=== PATIENT | male | born 1955 | race Caucasian/White ===

== ENCOUNTER 2019-04-15 17:08 | Emergency (ER) | payer OTHER ==
[~2019-04-15] VITALS: Ht 172.7 cm; Wt 87.5 kg
[~2019-04-15 17:08] MED LIST: AMOX875T PO; ASPI-515 PO; ATOR10TA9 PO; HYDR-3237 PO; ISOS30TA PO; METO25TA2 PO; TICA90TA PO
--- NOTE | 2019-04-15 17:18 | NUR ---
triage note. pt reports hx of cardiac stent. A&O x4. COFFMAN, ambulatory wihtout difficulty. no facial droop. no difficulty breathing speaking or swallowing. has no physical c/o at this time. reports that he was having difficuty speaking during a meeting about 2 hours ago
--- NOTE | 2019-04-15 17:27 | NUR ---
THIS IS A 63 YO M W/ C/O OF DIFFICULTY SPEAKING AND VISUAL MIGRAINE AT APPROXIMATELY 1300 LASTING A FEW MINUTES. PT SPEAKING IN FULL SENTENCES W/O DIFFICULTY, NO FACIAL DROOP NOTED, STRONG IN ALL EXTREMITIES, AMBULATED TO ROOM W/ A STEADY GAIT. REPORTS HX OF OCULAR MIGRAINES. DENIES CP/SOB/BILAT WEAKNESS. VS STABLE. PT IS RESTING ON GURNEY W/ CALL LIGHT IN REACH AND FAMILY AT BEDSIDE. AWAITING ED PROVIDER EVAL. DENIES FURTHER NEEDS AT THIS TIME.
--- NOTE | 2019-04-15 18:09 | NUR ---
MRI SCREEN FORM COMPLETED.
--- NOTE | 2019-04-15 18:11 | NUR ---
PT TO MRI.
[2019-04-15 18:24] LABS: ANION GAP 9 mmol/L (5-15); CALCIUM 8.6 mg/dL (8.5-10.1); CHLORIDE 106 mmol/L (98-107); CREATININE 0.83 mg/dL (0.7-1.3)
--- NOTE | 2019-04-15 18:45 | NUR ---
REPORT GIVEN TO SYDNIE GROVES.
--- NOTE | 2019-04-15 18:48 | NUR ---
Report received from YANELI Avelar. This RN to assume care. Patient returned from MRI; awaiting results. Resting in [facility] without complaints.
[2019-04-15 19:24] VITALS: BP 134/86
--- NOTE | 2019-04-15 19:24 | NUR ---
Discharge instructions given. All questions and concerns addressed. Patient ambulatory with a steady gait. Belongings with patient.
== END 2019-04-15 19:43 | disposition home or self-care (01) ==
LOC: ED 17:30
DX: G43.109 Migraine with aura, not intractable, without status migrainosus (principal); I10 Essential (primary) hypertension; E11.9 Type 2 diabetes mellitus without complications; E78.5 Hyperlipidemia, unspecified; I25.10 Atherosclerotic heart disease of native coronary artery without angina pectoris; Z87.891 Personal history of nicotine dependence
CPT/HCPCS: 36415; 70551; 80048; 99284

== ENCOUNTER → 2020-05-11 | Outpatient (CLI) | payer OTHER ==
[~2020-05-11] MED LIST changes: -ASPI-515 PO; +ASPI-963 PO
== END | disposition home or self-care (01) ==
LOC: CFH 09:02
PROVIDERS: ATTEND Nurse Practitioner Family
DX: R91.8 Other nonspecific abnormal finding of lung field (principal)
CPT/HCPCS: 71250

== ENCOUNTER 2020-06-26 14:03 | Day surgery (SDC) | payer OTHER ==
[2020-06-25 10:46] LABS: MICROSCOPIC AUTO
[2020-06-25 10:47] LABS: BASOPHILS % (AUTO) 1 % (0-1); EOSINOPHILS % (AUTO) 1 % (1-7); LYMPHOCYTES % (AUTO) 18 % (22-44); MEAN CORPUSCULAR HEMOGLOBIN 24.2 pg (27.5-34.5); MONOCYTES % (AUTO) 8 % (2-9); NEUTROPHILS % (AUTO) 72 % (42-75); PLATELET COUNT 392 x10^3/uL (130-400); RED BLOOD COUNT 5.11 x10^6/uL (4.38-5.82); RED CELL DISTRIBUTION WIDTH 16.1 % (9.4-14.8)
[2020-06-25 10:52] LABS: ALANINE AMINOTRANSFERASE 15 U/L (12-78); ALBUMIN 3.4 g/dL (3.4-5.0); ANION GAP 6 mmol/L (5-15); CALCIUM 8.9 mg/dL (8.5-10.1); CHLORIDE 105 mmol/L (98-107)
[2020-06-25 10:55] LABS: ALKALINE PHOSPHATASE 100 U/L (45-117); BILIRUBIN,TOTAL 0.4 mg/dL (0.2-1.0); CREATININE 0.95 mg/dL (0.7-1.3); MD NO; TOTAL PROTEIN 7.6 g/dL (6.4-8.2)
[~2020-06-26] VITALS: Ht 172.7 cm; Wt 79.2 kg
[~2020-06-26 14:03] MED LIST changes: +METF500T17 PO; +OMEP20TA62 PO
[2020-06-26 14:24] VITALS: BP 123/75
[2020-06-26] MEDS ORDERED: LIDOCAINE-MPF 1%, 2ML INFIL ONE (14:30)
[2020-06-26] MEDS ORDERED: CHLORHEXIDINE 15 ML UDC PO ONE (14:30)
[2020-06-26] MEDS ORDERED: LACTATED RINGERS 1,000 ML IV SCH (14:30)
[2020-06-26] MEDS ORDERED: CHLORHEXIDINE 15 ML UDC ONE (14:31)
[2020-06-26] MEDS ORDERED: LIDOCAINE-MPF 1%, 2ML ONE (14:31)
[2020-06-26] MEDS ORDERED: LOSA25TA25 PO (14:43)
[2020-06-26] MEDS ORDERED: GEMCITABINE HCL 1,000 MG in SODIUM CHLORIDE 0.9% 23.7 ML IS ONE (15:00)
[2020-06-26] MEDS ORDERED: FENTANYL PF 250 MCG/5ML ONE (15:18)
[2020-06-26] MEDS ORDERED: GLYCOPYRROLATE 0.2MG/1ML, 5ML ONE (15:19)
[2020-06-26] MEDS ORDERED: CEFAZOLIN 1,000 MG ONE (15:19)
[2020-06-26] MEDS ORDERED: SUCCINYLCHOLINE 20 MG/ML, 10ML ONE (15:19)
[2020-06-26] MEDS ORDERED: PROPOFOL 10 MG/ML, 20ML ONE (15:19)
[2020-06-26] MEDS ORDERED: ONDANSETRON 2MG/ML, 2ML ONE (15:19)
[2020-06-26] MEDS ORDERED: NEOSTIGMINE 1 MG/ML, 10ML ONE (15:19)
[2020-06-26] MEDS ORDERED: ROCURONIUM 10 MG/ML,10ML ONE (15:19)
[2020-06-26] MEDS ORDERED: DEXAMETHASONE 4 MG/ML, 1ML ONE (15:19)
[2020-06-26] MEDS ORDERED: EPHEDRINE 50 MG/ML, 1ML IVPush PRN (16:00)
[2020-06-26] MEDS ORDERED: HYDROmorphone 1 MG/ML, 1ML INJ IVPush PRN (16:00)
[2020-06-26] MEDS ORDERED: METHOCARBAMOL 1,000 MG in DEXTROSE 5% 100 ML IV PRN (16:00)
[2020-06-26] MEDS ORDERED: LABETALOL 5MG/ML, 20ML IV PRN (16:00)
[2020-06-26] MEDS ORDERED: ONDANSETRON 2MG/ML, 2ML IVPush PRN (16:00)
[2020-06-26] MEDS ORDERED: PROMETHAZINE 25 MG/ML, 1ML IVPush PRN (16:00)
[2020-06-26] MEDS ORDERED: MEPERIDINE/PF 25MG/0.5ML IVPush PRN (16:00)
[2020-06-26] MEDS ORDERED: ACETAMINOPHEN 325 MG TABLET PO PRN (16:00)
[2020-06-26] MEDS ORDERED: OXYcodone 5 MG/5 ML ORAL.SOL UDC PO PRN (16:00)
[2020-06-26] MEDS ORDERED: hydrALAzine 20 MG/ML, 1ML IV PRN (16:00)
[2020-06-26] MEDS ORDERED: LORazepam 2 MG/ML, 1ML IVPush PRN (16:00)
[2020-06-26] MEDS ORDERED: FENTANYL PF 100 MCG/2ML ONE (16:13)
[2020-06-26] MEDS: FENTANYL PF 100 MCG/2ML IV PRN ×2 (16:16→16:25)
== END 2020-06-26 18:35 | disposition home or self-care (01) ==
LOC: OR 14:03
PROVIDERS: ATTEND Urology
DX: C67.5 Malignant neoplasm of bladder neck (principal); N20.1 Calculus of ureter; N40.1 Benign prostatic hyperplasia with lower urinary tract symptoms; R39.12 Poor urinary stream; I10 Essential (primary) hypertension; E11.9 Type 2 diabetes mellitus without complications; I25.10 Atherosclerotic heart disease of native coronary artery without angina pectoris; Z20.822 Contact with and (suspected) exposure to COVID-19; Z79.84 Long term (current) use of oral hypoglycemic drugs; Z79.899 Other long term (current) drug therapy; Z87.442 Personal history of urinary calculi; Z95.5 Presence of coronary angioplasty implant and graft
CPT/HCPCS: 36415; 52234; 74018; 80053; 81001; 82962; 85025; 87086; 88305; 93005; J0330; J0690; J1100; J2405; J2704; J2710; J3010; J7120; U0003; U0005; 76000

== ENCOUNTER → 2020-08-01 | Outpatient (CLI) | payer OTHER ==
[~2020-08-01] MED LIST changes: +LOSA25TA25 PO
== END | disposition home or self-care (01) ==
LOC: CFH 09:17
PROVIDERS: ATTEND Nurse Practitioner Family
DX: R91.8 Other nonspecific abnormal finding of lung field (principal); N13.30 Unspecified hydronephrosis
CPT/HCPCS: 71250